=== PATIENT | female | born 1955 | race Caucasian/White ===

== ENCOUNTER 2020-12-13 08:54 | Outpatient (CLI) | payer MEDICARE, BC, SELFPAY ==
--- NOTE | 2021-01-08 15:12 | WPDHOMESLEEP ---
Sleep Study - Home Unattended Date of Study: 12/13/20 Ordering Provider: SURENDRA Sam Interpreting Provider: Oly Cárdenas MD Home Sleep Study Type: Apnea Link Air Height: 1.63 m Weight: 121.563 kg Body Mass Index: 46.0 Neck Circumference (inches): 16.5 [place]: 14 Reason for Sleep Study Ecessive daytime sleepiness, long sleep episodes of 10-12 hours and still feels tired Sleep History Ghazala Leiva is a 65-year-old female who is tired even after sleeping 10-12 hours. This is been going on for 1-2 years. There is a family history of sleep disorders with her mother, brother and sister all using CPAP for sleep apnea. She wakes up during the night to urinate and she always has excessive daytime sleepiness. She frequently snores and is occasionally loud enough that others complain about it. She rarely awakens at night with heartburn, belching or coughing. She does not awaken from sleep feeling short of breath. she rarely has trouble sleeping with a cold. She occasionally gasps for breath during the night. She rarely has breathing problems at night observed by others. She does not sweat excessively at night. She does not notice her heart pounding or beating irregularly at night. She frequently falls asleep during the day, occasionally involuntarily, never while driving or while exerting physical effort. She does not have loss of muscle tone was strong emotion. She does not have daytime difficulty due to excessive sleepiness. She rarely feels paralyzed on waking or falling asleep and rarely has vivid dreamlike scenes upon awakening or falling asleep. She is never a frail to go to sleep. She rarely has nightmares. She occasionally remembers her dreams. She rarely has racing thoughts. She occasionally feels sad and depressed. She rarely feels anxiety. She describes it as feeling that she needs to be somewhere and she is running late but she does not really have any where to go. She does not have muscular tension. She rarely notices parts of her body jerking. She does not kick at night. She rarely has crawling and aching feelings in her legs and rarely has any kind of leg pain at night. She does not have morning jaw pain. She does not grind her teeth during sleep. She occasionally has bothered by arthritic pain in her thumbs during the day. She is not awakened by pain during the night. She does not wake up feeling stiff in the morning. She rarely awakens with sore achy muscles or pain in her neck and spine. She takes Nexium regularly for GERD. Normal bedtime is whenever she gets tired so she does not really have a fixed bedtime. It takes a variable amount of time for her to fall asleep. She typically wakes twice at night to urinate and is able to return to sleep quickly. She may also take a drink of water. She wakes up early at 7:30 a.m. only on Wednesdays which is the day that she works. 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 Her weekend schedule is the same. She estimates getting 8-12 hours of sleep. She does take naps. A short nap is not refreshing. Even after a nap, she is initially refreshed but then become sleepy again. She feels better in the afternoon compared to other times of day. After drinking 2 cups of coffee in the morning she sometimes falls asleep again sitting upright on the couch. habits: quit tobacco November 1985. Caffeine 2 mugs per day. no alcohol or recreational drugs. [facility] Past Medical History Medical History (Updated 01/08/21 @ 15:27 by Oly Cárdenas MD) Asthma Depression GERD (gastroesophageal reflux disease) Glaucoma Hypercholesterolemia Hypertension Surgical History Surgical History (Updated 01/08/21 @ 15:17 by Oly Cárdenas MD) History of hysterectomy Family History Family History (Updated 01/08/21 @ 15:15 by Oly Cárdenas MD) Mother Obstructive sleep apnea Sibling Obstructive sleep apnea Sibling Obstructive sleep apnea Social Hi
[2021-01-08 15:30] VITALS: BMI 46.0
== END 2020-12-13 08:55 | disposition home or self-care (01) ==
LOC: ANHCSM 08:55
PROVIDERS: PCP Family Medicine; Visit Provider Physician Assistant
DX: G47.33 Obstructive sleep apnea (adult) (pediatric) (principal)
CPT/HCPCS: 95806

== ENCOUNTER 2021-01-06 17:01 | Outpatient (CLI) | payer MEDICARE, BC, SELFPAY ==
--- NOTE | ~2021-01-06 | MM_ITS ---
EXAMINATION: MM screening lee BI w isak HISTORY: Screening TECHNIQUE: Craniocaudal and mediolateral oblique 3-D tomosynthesis images were obtained and synthetic 2-D images were generated. CAD analysis was submitted and interpreted. COMPARISON: Comparison to multiple prior studies sequentially, with oldest reviewed study dated 07/19. BREAST PARENCHYMAL COMPOSITION: The breasts are almost entirely fatty. FINDINGS: There is no evidence of suspicious mass, calcification, or architectural distortion to sugg est malignancy in either breast. There has been no suspicious interval change. IMPRESSION: 1. No mammographic evidence of malignancy. 2. Recommend routine screening mammography in one year. BI-RADS Category 1: Negative Reviewed, dictated and finalized at location A. [facility]
== END 2021-01-06 17:02 | disposition home or self-care (01) ==
LOC: ANHIMG 17:09
PROVIDERS: PCP Family Medicine; Visit Provider Physician Assistant
DX: Z12.31 Encounter for screening mammogram for malignant neoplasm of breast (principal)
CPT/HCPCS: 77063; 77067

== ENCOUNTER → 2021-01-17 02:49 | Outpatient (CLI) | payer MEDICARE, BC, SELFPAY ==
[2021-01-17 18:21] LABS: SARS-CoV-2 RNA PCR Negative
== END ==
PROVIDERS: PCP Family Medicine; Visit Provider Internal Medicine Critical Care Medicine
DX: R68.89 Other general symptoms and signs (principal); Z20.822 Contact with and (suspected) exposure to COVID-19
CPT/HCPCS: C9803; U0003; U0005

== ENCOUNTER 2021-01-19 09:09 | Outpatient (CLI) | payer MEDICARE, BC, SELFPAY ==
--- NOTE | 2021-02-10 14:36 | WPDSLEEPSTUD ---
Sleep Study Ordering Provider: SURENDRA Sam Interpreting Physician: Oly Cárdenas MD Sleep Study Type: CPAP Titration Height: 1.63 m Weight: 120.202 kg Body Mass Index: 45.4 Neck Circumference (inches): 16 [place]: 9 Reason for Sleep Study HST Dec 13, 2020 with severe HOA, AHI 68, lowest saturation 78%, here for CPAP titration Sleep History Ghazala Leiva is a 66-year-old female with a home sleep test Dec 13 showing severe HOA AHI 68, desaturation to 78%, constant snoring. She is tired even after sleeping 10-12 hours. This is been going on for 1-2 years. There is a family history of sleep disorders with her mother, brother and sister all using CPAP for sleep apnea. She wakes up during the night to urinate and she always has excessive daytime sleepiness. She frequently snores and is occasionally loud enough that others complain about it. She rarely awakens at night with heartburn, belching or coughing. She does not awaken from sleep feeling short of breath. she rarely has trouble sleeping with a cold. She occasionally gasps for breath during the night. She rarely has breathing problems at night observed by others. She does not sweat excessively at night. She does not notice her heart pounding or beating irregularly at night. She frequently falls asleep during the day, occasionally involuntarily, never while driving or while exerting physical effort. She does not have loss of muscle tone was strong emotion. She does not have daytime difficulty due to excessive sleepiness. She rarely feels paralyzed on waking or falling asleep and rarely has vivid dreamlike scenes upon awakening or falling asleep. She is never a frail to go to sleep. She rarely has nightmares. She occasionally remembers her dreams. She rarely has racing thoughts. She occasionally feels sad and depressed. She rarely feels anxiety. She describes it as feeling that she needs to be somewhere and she is running late but she does not really have any where to go. She does not have muscular tension. She rarely notices parts of her body jerking. She does not kick at night. She rarely has crawling and aching feelings in her legs and rarely has any kind of leg pain at night. She does not have morning jaw pain. She does not grind her teeth during sleep. She occasionally has bothered by arthritic pain in her thumbs during the day. She is not awakened by pain during the night. She does not wake up feeling stiff in the morning. She rarely awakens with sore achy muscles or pain in her neck and spine. She takes Nexium regularly for GERD. Normal bedtime is whenever she gets tired so she does not really have a fixed bedtime. It takes a variable amount of time for her to fall asleep. She typically wakes twice at night to urinate and is able to return to sleep quickly. She may also take a drink of water. She wakes up early at 7:30 a.m. only on Wednesdays which is the day that she works. 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 Her weekend schedule is the same. She estimates getting 8-12 hours of sleep. She does take naps. A short nap is not refreshing. Even after a nap, she is initially refreshed but then become sleepy again. She feels better in the afternoon compared to other times of day. After drinking 2 cups of coffee in the morning she sometimes falls asleep again sitting upright on the couch. Habits: quit tobacco November 1985. Caffeine 2 mugs per day. No alcohol or recreational drugs. [facility] Past Medical History Medical History (Updated 02/10/21 @ 14:38 by Oly Cárdenas MD) Asthma Depression GERD (gastroesophageal reflux disease) Glaucoma Hypercholesterolemia Hypertension Obstructive sleep apnea Surgical History Surgical History History of hysterectomy Family History Family History Mother Obstructive sleep apnea Srini
[2021-02-10 14:56] VITALS: BMI 45.4
== END 2021-01-19 09:10 | disposition home or self-care (01) ==
LOC: ANHCSM 09:10
PROVIDERS: PCP Family Medicine; Visit Provider Physician Assistant
DX: G47.33 Obstructive sleep apnea (adult) (pediatric) (principal)
CPT/HCPCS: 95810; 95811

== ENCOUNTER 2021-01-27 11:14 | Outpatient (CLI) | payer MEDICARE, BC, SELFPAY | END 2021-01-27 11:15 | disposition home or self-care (01) | LOC: ANHCOVIDVC 11:14 | PROVIDERS: PCP Family Medicine | DX: Z23 Encounter for immunization (principal) | CPT/HCPCS: 0001A; 91300 ==

== ENCOUNTER 2021-02-17 11:15 | Outpatient (CLI) | payer MEDICARE, BC, SELFPAY | END 2021-02-17 11:16 | disposition home or self-care (01) | LOC: ANHCOVIDVC 11:15 | PROVIDERS: PCP Family Medicine | DX: Z23 Encounter for immunization (principal) | CPT/HCPCS: 0002A; 91300 ==

== ENCOUNTER 2021-06-30 14:01 | Outpatient (CLI) | payer MEDICARE, BC, SELFPAY ==
--- NOTE | ~2021-06-30 | DEXA_ITS ---
Bone Density Report Name: Ghazala Leiva Age: 66 Sex: Female Ethnicity: White Date of : 1955 Indication: postmenopausal; hysterectomy; Referring Provider: Marie Vyas Study: Bone densitometry was performed. Exam Date: June 30, 2021 Accession number: [id number] Bone Density: Region BMD T-score Z-score Classification AP Spine (L1-L4) 1.274 2.1 4.1 Normal Femoral Neck (Left) 0.867 0.2 1.9 Normal Total Hip (Left) 1.152 1.7 3.1 Normal Total Hip Bilateral Avg 1.152 1.7 3.1 Normal Femoral Neck (Right) 0.853 0.0 1.7 Normal Total Hip (Right) 1.150 1.7 3.1 Normal World Health Organization criteria for BMD impression classify patients as: Normal (T-score at or above -1.0), Osteopenia (T-score between -1.0 and -2.5), or Osteoporosis (T-score at or below -2.5). 10-year Fracture Risk: FRAX not reported because: All T-scores for Spine Total, Hip Total, Femoral Neck at or above -1.0 Clinical Information Provided by Patient: Has used the following medications: Vitamin D, Calcium Has the following medical conditions: Hysterectomy Patient maximum height was 64 Menopause Age: 36 No regular weight bearing exercise Drinks caffeinated beverages Onset of menses at age 10 Number of children 2 Impression: The patient has normal bone mass. Discussion: BONE DENSITY IS ABOVE THE MINIMUM DESIRABLE LEVEL AT ALL SKELETAL SITES TESTED. This patient?s bone mineral density is above the minimum desirable level (T-score -1.0 or better) at all sites measured. The patient should follow a healthful lifestyle (good nutrition with adequate calcium and vitamin D, and appropriate weight-bearing exercise). Follow-Up: Consider repeating this study in 5 years or sooner if there is some new clinical indication. Reported by: LISA on 06/30/2021 2:30:00 PM. Reviewed, dictated and finalized at location AIesha WEBSTER
== END 2021-06-30 14:02 | disposition home or self-care (01) ==
LOC: ANHIMG 14:08
PROVIDERS: PCP Family Medicine; Visit Provider Physician Assistant
DX: M81.0 Age-related osteoporosis without current pathological fracture (principal)
CPT/HCPCS: 77080

== ENCOUNTER 2021-12-16 00:18 | Day surgery (SDC) | payer MEDICARE, BC, SELFPAY ==
[2021-12-06 15:18] VITALS: BMI 49.6
[2021-12-16 09:24] VITALS: BP 168/90; PULSE 101; RESP 22; TEMP 36.3; O2SAT 98; BMI 49.6
[2021-12-16] MEDS: LACTATED RINGERS 1,000 ML 150 ML IV CONT (09:36)
--- NOTE | 2021-12-16 09:58 | WPDGICN ---
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 She presents today for follow-up examination because of recent rectal bleeding. Further recommendations will be given after endoscopy. (2) Rectal bleeding: Code(s): K62.5 - Hemorrhage of anus and rectum Status: Acute Assessment and Plan: Patient has had at least 2 episodes of rectal bleeding no associated pain. This is suspicious for hemorrhoidal bleeding. High-fiber diet is advised. This will be evaluated at time of endoscopy. GI Consult Note Consult date/time: 12/16/21 09:58 HPI: Ghazala Leiva is a 66 year old female Presents for follow-up colonoscopy. Patient recently notice bright red blood per rectum on at least 2 occasions. Patient reports that 5 years ago 2016 underwent colonoscopy a benign leiomyoma type polyp was removed from the colon at that time. She reports that her weight appetite bowel movements are otherwise normal aside from 2 recent episodes of bright red blood per rectum she denies abdominal pain. With the use of stools softeners her bowel habits have remained regular. Review of Systems Review of Systems: All systems reviewed & are unremarkable except as noted in HPI and below PMFSH Past Medical History Medical History (Updated 12/16/21 @ 10:00 by Savage Gauthier MD) Asthma Depression GERD (gastroesophageal reflux disease) Glaucoma Hypercholesterolemia Hypertension Obstructive sleep apnea Surgical History Surgical History History of hysterectomy Family History Family History Mother Obstructive sleep apnea Sibling Obstructive sleep apnea Sibling Obstructive sleep apnea Social History Social History Smoking status: Former smoker Tobacco type: cigarettes Alcohol intake: never Living arrangements: with family Meds Home Medications and Allergies Home Medications Medication Instructions Recorded Confirmed Type bupropion HCl 150 mg PO DAILY 12/06/21 12/06/21 History hydrochlorothiazide 25 mg PO DAILY 12/06/21 12/06/21 History metoprolol succinate 100 mg PO DAILY 12/06/21 12/06/21 History paroxetine HCl 20 mg PO DAILY 12/06/21 12/06/21 History Allergies Allergy/AdvReac Type Severity Reaction Status Date / Time SULFA AdvReac Intermediate NV Uncoded 12/16/21 09:22 Vital Signs Vital Signs - 24 hr 12/16/21 09:24 Temperature 97.3 F L Pulse Rate 101 H Respiratory Rate 22 H Blood Pressure 168/90 H Pulse Oximetry 98 Exam Narrative: Physical exam reveals patient to be alert. Vital signs stable. HEENT exam unremarkable. Patient is anicteric. Lungs are clear to auscultation and percussion. Heart is without murmur or extra sounds. Abdomen bowel sounds are present soft nontender with no organomegaly. She is modestly obese. Digital external rectal exam normal.
--- NOTE | 2021-12-16 10:02 | P.PNAN_ITS ---
Anes - Initial Pre Proc Eval Procedure: Operation Date: 12/16/21 10:00 Proposed Procedures p Screening Colonoscopy - Savage Gauthier MD Date/Time: 12/16/21 10:02 Surgeon: Savage Gauthier MD Pre Op Diagnosis: hx of colon polyps Patient Data Age: 66 Gender: F Height: 1.6 m Weight: 127 kg Last Vital Signs Temp 36.3 C L 12/16/21 09:24 Pulse 101 H 12/16/21 09:24 Resp 22 H 12/16/21 09:24 BP 168/90 H 12/16/21 09:24 Pulse Ox 98 12/16/21 09:24 Allergies Allergy/AdvReac Type Severity Reaction Status Date / Time SULFA AdvReac Intermediate NV Uncoded 12/16/21 09:22 Home Medications Medication Instructions Recorded Confirmed Type bupropion HCl 150 mg PO DAILY 12/06/21 12/06/21 History hydrochlorothiazide 25 mg PO DAILY 12/06/21 12/06/21 History metoprolol succinate 100 mg PO DAILY 12/06/21 12/06/21 History paroxetine HCl 20 mg PO DAILY 12/06/21 12/06/21 History Patient hx anesthesia problems: none Family hx anesthesia problems: none Results Review: All pre-operative results and documents have been reviewed as part of the pre-operative evaluation. [facility] Past Medical History Medical History Asthma Depression GERD (gastroesophageal reflux disease) Glaucoma Hypercholesterolemia Hypertension Obstructive sleep apnea Surgical History Surgical History History of hysterectomy Family History Family History Mother Obstructive sleep apnea Sibling Obstructive sleep apnea Sibling Obstructive sleep apnea Social History Social History Smoking status: Former smoker Tobacco type: cigarettes Alcohol intake: never Living arrangements: with family Anes - Eval Final PreProcedure Day of Procedure 12/16/21 10:02 Patient weight: morbidly obese Heart: regular rate and rhythm Lungs: clear to auscultation Airway: Mallampati scale class II Neurological: alert and oriented Last oral intake: >/= 8 hours ASA classification: III Emergent: no Anesthetic plan: proceed Anesthesia type and monitoring: general GIVS and standard monitoring Results Review: All pre-operative results and documents have been reviewed as part of the pre-operative evaluation. Informed Consent: The patient's anesthetic plan and its attendant risks and benefits were discussed with the patient/family/POA. Questions were solicited and answers provided to the satisfaction of the patient/family/POA.
[2021-12-16 10:28] VITALS: BP 124/72; PULSE 88; RESP 16; O2SAT 95
[2021-12-16 10:38] VITALS: BP 153/98; PULSE 88; RESP 23; O2SAT 93
[2021-12-16 10:48] VITALS: BP 155/97; PULSE 85; RESP 20; O2SAT 98
== END 2021-12-16 11:06 | disposition home or self-care (01) ==
PROVIDERS: PCP Physician Assistant; Visit Provider Internal Medicine Gastroenterology
PROC: 0DJD8ZZ Inspection of Lower Intestinal Tract, Via Natural or Artificial Opening Endoscopic (ICD-10-PCS; CPT 45378; principal; 2021-12-16 10:00)
DX: K62.5 Hemorrhage of anus and rectum (principal); K57.30 Diverticulosis of large intestine without perforation or abscess without bleeding; K64.8 Other hemorrhoids; K64.4 Residual hemorrhoidal skin tags; Z86.010 Personal history of colon polyps; I10 Essential (primary) hypertension; E78.00 Pure hypercholesterolemia, unspecified; G47.33 Obstructive sleep apnea (adult) (pediatric); J45.909 Unspecified asthma, uncomplicated; K21.9 Gastro-esophageal reflux disease without esophagitis; H40.9 Unspecified glaucoma; F32.9 Major depressive disorder, single episode, unspecified; Z87.891 Personal history of nicotine dependence; E66.01 Morbid (severe) obesity due to excess calories; Z68.42 Body mass index [BMI] 45.0-49.9, adult
CPT/HCPCS: 45378; J2704; J7120

== ENCOUNTER 2022-06-08 15:07 | Outpatient (CLI) | payer MEDICARE, BC, SELFPAY ==
--- NOTE | ~2022-06-08 | MM_ITS ---
EXAMINATION: MM screening lee BI w isak HISTORY: Screening TECHNIQUE: Craniocaudal and mediolateral oblique 3-D tomosynthesis images were obtained and synthetic 2-D images were generated. CAD analysis was submitted and interpreted. COMPARISON: Comparison to multiple prior studies sequentially, with oldest reviewed study dated 07/19. BREAST PARENCHYMAL COMPOSITION: The breasts are almost entirely fatty. FINDINGS: There is no evidence of suspicious mass, calcification, or architectural distortion to sugg est malignancy in either breast. There has been no suspicious interval change. IMPRESSION: 1. No mammographic evidence of malignancy. 2. Recommend routine screening mammography in one year. BI-RADS Category 1: Negative Reviewed, dictated and finalized at location A.
== END 2022-06-08 15:08 | disposition home or self-care (01) ==
PROVIDERS: PCP Physician Assistant; Visit Provider Physician Assistant
DX: Z12.31 Encounter for screening mammogram for malignant neoplasm of breast (principal)
CPT/HCPCS: 77063; 77067

== ENCOUNTER 2024-03-20 14:21 | Outpatient (CLI) | payer MEDICARE, BC, SELFPAY ==
--- NOTE | ~2024-03-20 | DEXA_ITS ---
Bone Density Report Name: JANE DILLARD Age: 69 Sex: Female Ethnicity: White Date of : 1955 Indication: postmenopausal; screening for osteoporosis; history of glucocorticoids; asthma or emphysema; hysterectomy; Referring Provider: BLANCA DRAKE Study: Bone densitometry was performed. Exam Date: March 20, 2024 Accession number: [id number] Bone Density: Region BMD T-score Z-score Classification AP Spine(L1-L4) 1.246 1.8 4.0 Normal Femoral Neck (Left) 0.812 -0.3 1.5 Normal Total Hip (Left) 1.161 1.8 3.4 Normal Femoral Neck (Right) 0.818 -0.3 1.6 Normal Total Hip (Right) 1.213 2.2 3.8 Normal Total Hip Mean 1.187 2.0 3.6 Normal World Health Organization criteria for BMD impression classify patients as: Normal (T-score at or above -1.0), Osteopenia (T-score between -1.0 and -2.5), or Osteoporosis (T-score at or below -2.5). 10-year Fracture Risk: FRAX not reported because: All T-scores for Spine Total, Hip Total, Femoral Neck at or above -1.0 Clinical Information Provided by Patient: Has taken Glucocorticoids Has used the following medications: Vitamin D Has the following medical conditions: Asthma or Emphysema, Hysterectomy Patient maximum height was 64 Menopause Age: 36 No regular weight bearing exercise Does not regularly consume dairy products Drinks caffeinated beverages Onset of menses at age 11 Number of children 2 Impression: The patient has normal bone mass. The patient has risk factors, including: history of glucocorticoid therapy. Discussion: BONE DENSITY IS ABOVE THE MINIMUM DESIRABLE LEVEL AT ALL SKELETAL SITES TESTED. This patient?s bone mineral density is above the minimum desirable level (T-score -1.0 or better) at all sites measured. The patient should follow a healthful lifestyle (good nutrition with adequate calcium and vitamin D, and appropriate weight-bearing exercise). Follow-Up: Consider repeating this study in 5 years or sooner if there is some new clinical indication. Reported by: FANNY on 03/20/2024 3:00:00 PM. Reviewed, dictated and finalized at location A. [facility] CENTERJanelle
--- NOTE | ~2024-03-20 | MM_ITS ---
EXAMINATION: MM screening lee BI w isak HISTORY: Screening mammogram TECHNIQUE: Craniocaudal and mediolateral oblique 3-D tomosynthesis images were obtained and synthetic 2-D images were generated. CAD analysis was submitted and interpreted. COMPARISON: 06/08/2022, 01/06/2021 bilateral screening mammogram examinations BREAST PARENCHYMAL COMPOSITION: The breasts are almost entirely fatty. FINDINGS: There is no evidence of suspicious mass, calcification, or architectural distortion to sugg est malignancy in either breast. There has been no suspicious interval change. IMPRESSION: 1. No mammographic evidence of malignancy. 2. Recommend routine screening mammography in one year. BI-RADS Category 1: Negative. Reviewed, dictated and finalized at location A.
== END 2024-03-20 14:22 | disposition home or self-care (01) ==
PROVIDERS: PCP Family Medicine; Visit Provider Physician Assistant
DX: Z12.31 Encounter for screening mammogram for malignant neoplasm of breast (principal); Z78.0 Asymptomatic menopausal state
CPT/HCPCS: 77063; 77067; 77080

== ENCOUNTER 2025-05-26 10:48 | Outpatient (CLI) | payer MEDICARE, BC, SELFPAY ==
[2025-05-26 11:55] LABS: Alanine Aminotransferase 24 U/L (6-35); Albumin Level 4.3 g/dL (3.5-5.1); Alkaline Phosphatase 83 U/L (38-126); Anion Gap 10 mmol/L (4-12); Aspartate Amino Transferase 26 U/L (14-36); Bilirubin,Total 0.5 mg/dL (0.2-1.3); Blood Urea Nitrogen 23 mg/dL (7-17); Calcium 9.0 mg/dL (8.4-10.2); Carbon Dioxide 27 mmol/L (22-30); Chloride 98 mmol/L (98-107); Cholesterol 143 mg/dL (0-200); Estimated Glomerular Filt Rate 58; Glucose 123 mg/dL (65-110); HDL Direct 41 mg/dL; Potassium 3.9 mmol/L (3.4-5.0); Sodium 135 mmol/L (137-145); Total Protein 7.5 g/dL (6.3-8.2); Triglycerides 139 mg/dL (<150)
[2025-05-26 12:19] LABS: Hemoglobin A1C 5.7 % (<5.7)
== END 2025-05-26 10:49 | disposition home or self-care (01) ==
PROVIDERS: PCP Family Medicine; Visit Provider Family Medicine
DX: E78.00 Pure hypercholesterolemia, unspecified (principal); I10 Essential (primary) hypertension; R73.03 Prediabetes
CPT/HCPCS: 36415; 80053; 80061; 83036

== ENCOUNTER 2025-08-27 01:21 | Day surgery (SDC) | payer MEDICARE, BC, OTHER, SELFPAY ==
[2025-08-26 10:00] VITALS: BMI 50.3
[2025-08-27] VITALS (13 sets, daily range): BP systolic 96–150; BP diastolic 51–87; PULSE 65–77; RESP 16–23; TEMP 35.6; O2SAT 94–98; BMI 53.0
[2025-08-27 12:04] LABS: Hematocrit 39.1 % (37.0-47.0); Hemoglobin 12.6 g/dL (12.0-15.0); Immature Granulocyte Percent A 0.3 % (0-0.5); Lymphocytes Absolute Auto 2.25 K/mm3 (0.9-3.2); Mean Corpuscular HGB Conc 32.2 g/dl (32-36); Mean Corpuscular Hemoglobin 30.9 pg (26-34); Mean Corpuscular Volume 95.8 fl (80-100); Nucleated Red Blood Cells Absolute Auto 0.000 K/mm3 (0.0-0.012); Nucleated Red Blood Cells Perc 0.0 % (0.0-0.2); Platelet Count Result 222 k/mm3 (150-375); Red Blood Count 4.08 M/mm3 (4.2-5.4); White Blood Count 8.6 K/mm3 (4.5-10.0)
--- NOTE | 2025-08-27 12:10 | WPDHPUPDATE1 ---
History and Physical Update Update Date/Time: 08/27/25 12:10 History and Physical has been reviewed, including an updated exam of the patient. There are NO changes in the patient's condition. Risks, benefits, and alternatives have been discussed and questions answered. Patient agrees to proceed with procedure.
--- NOTE | 2025-08-27 12:10 | WPDMODSED ---
Moderate Sedation Note-Pt Data Patient Data Allergies Allergy/AdvReac Type Severity Reaction Status Date / Time Sulfa (Sulfonamide AdvReac Intermediate Nausea and Verified 08/27/25 11:45 Antibiotics) Vomiting Home Medications ?Medication ?Instructions ?Recorded ?Confirmed ?Type cetirizine 10 mg tablet (All Day 10 mg PO DAILY PRN allergy 04/06/23 08/26/25 Rx Allergy (cetirizine)) symptoms #30 tabs diphenhydramine HCl 25 mg tablet 25 mg PO QHS PRN allergy symptoms 04/06/23 08/26/25 Rx (Benadryl Allergy) #30 tabs latanoprost 0.005 % eye drops 1 drp EACH EYE DAILY #2.5 mL 04/06/23 08/26/25 Rx naproxen sodium 220 mg capsule 220 mg PO BID PRN pain #60 caps 04/06/23 08/26/25 Rx (Aleve) psyllium husk 0.52 gram capsule 0.52 g PO DAILY #30 caps 04/06/23 08/26/25 Rx (Daily Fiber) timolol 0.5 % eye drops 1 drp EACH EYE DAILY #5 mL 04/06/23 08/26/25 Rx omega-3s 800 mg-dha 186.67 mg-epa 1 cap PO .three times daily #90 03/07/24 08/26/25 Rx 560 mg-fish-vit D3 8.33 mcg caps capsule (De3 Dry Eye [place] Benefits) diclofenac sodium 1 % topical gel 2 g topical QID 09/11/24 08/26/25 History (Voltaren Arthritis Pain) metoprolol succinate 50 mg See Rx Instructions .Route 07/06/25 08/27/25 Rx tablet,extended release 24 hr .COMPLEX #180 tabs bupropion HCl 150 mg 24 hr tablet, See Rx Instructions .Route 08/10/25 08/27/25 Rx extended release .COMPLEX #90 tabs hydrochlorothiazide 25 mg tablet See Rx Instructions .Route 08/10/25 08/26/25 Rx .COMPLEX #90 tabs paroxetine HCl 20 mg tablet See Rx Instructions .Route 08/12/25 08/27/25 Rx .COMPLEX #30 tabs acetaminophen 500 mg tablet 1,000 mg PO Q6H PRN pain 08/26/25 08/26/25 History docusate sodium 100 mg capsule 100 mg PO HS 08/26/25 08/26/25 History (Colace) vitamin B complex 1 tablet PO BID 08/26/25 08/26/25 History Current Medications: Active Medications Sodium Chloride (Normal Saline Iv) 500 mls @ 100 mls/hr IV CONT .Q5H [facility] Sedation/Anesthesia: No previous sedation/anesthesia problems (including family history). [facility] Past Medical History Medical History (Updated 03/16/25 @ 15:17 by Erick Huitron MD) Exertional chest pain Prediabetes Obstructive sleep apnea Asthma GERD (gastroesophageal reflux disease) Glaucoma Hypercholesterolemia (~04/06/23) Hypertension Depression Surgical History Surgical History History of hysterectomy 1991 Family History Family History Mother Obstructive sleep apnea Sibling Obstructive sleep apnea Sibling Obstructive sleep apnea Social History Social History Smoking status: Former smoker Tobacco type: cigarettes Additional smoking assessment comments: quit in the Alcohol intake: never Substance use: never Substance use type: does not use Lack of Transportation: No Lack of Food: Never True Current Housing: I Have Housing Concerned About Future Housing: No Difficulty Paying Gas/Electric Bills: No Difficulty Paying for Meds: No Currently Unemployed: No Education: High School Diploma/GED Difficulty w/ Childcare or Family Care: No Living arrangements: with family Occupation/Education: occupation Gender identity (if verbalized by the patient): Female Sexual Orientation (if Verbalized by the Patient): Straight or Heterosexual Spiritual care concerns: No Mod Sed Physical Exam Physical Exam Pre Procedural Exam: Normal: Lungs, Heart Rate and Heart Rhythm Hours since solid foods: 12 Hours since liquid intake: 12 Mallampati Classification: class III Internal Medicine - PN: Obj Da Vital Signs Vital Signs: Vital Signs - 24 hr 08/27/25 11:47 Temperature 35.6 C L Pulse Rate 69 Respiratory Rate 23 H Blood Pressure 148/80 H Pulse Oximetry 98 Oxygen Delivery Room Air Meds/Results Medications: Active Medications Generic Name Dose Route Start Last Admin Trade Name Freq PRN Reason Stop Dose Admin Sodium Chloride 500 mls @ 100 mls/hr 08/27/25 11:30 Normal Saline Iv IV CONT .Q5H [facility] Labs 08/27/25 11:56 08/27/25 11:56 Labs: Laboratory Results - last 24 hr 08/27/25 11:56 WBC 8.6 RBC 4.08 L Hgb 12.6 Hct 39.1 MCV 95.8 MCH 30.9 MCHC 32.2 RDW 13.7 Plt Count 222 MPV 9.8 Immature Gran % (Auto) 0.3 Neut % (Auto) 63.3 Lymph % (Auto) 26.1 [place] % (Auto) 7.5 Eos % (Auto) 2.0 Baso % (Auto) 0.8 Lymph # (Auto) 2.25 [place] # (Auto) 0.7 H Eos # (Auto) 0.2 Baso # (Auto) 0.1 Abs Immat Gran (auto) 0.03 Absolute Neuts (auto) 5.5 Absolute Nucleated RBC 0.000 Nucleated RBC % 0.0 ASA Classification/Sedation ASA Classification/Sedation ASA Class: III Emergent: No Risks: Risks, benefits and alternatives explained and patient/family accepted plan for sedation. Patient re-evaluated immediately prior to sedation.
[2025-08-27 12:18] LABS: Anion Gap 10 mmol/L (4-12); Blood Urea Nitrogen 24 mg/dL (7-17); Calcium 8.7 mg/dL (8.4-10.2); Carbon Dioxide 24 mmol/L (22-30); Chloride 101 mmol/L (98-107); Estimated CRCL calculation 74 ml/min; Estimated Glomerular Filt Rate > 60; Glucose 115 mg/dL (65-110); Potassium 4.6 mmol/L (3.4-5.0); Sodium 135 mmol/L (137-145)
--- NOTE | 2025-08-27 12:56 | WPDCARDPROC ---
Cardiac Cath Procedure Note Date of procedure:: 08/27/25 Performing physician:: CATHETERIZATION LABORATORY REPORT Procedure Date: 08/27/2025 Referring Physician: Dr. Garcia Anesthesia: Versed and Fentanyl were ordered and given in my presence at 1244, procedure ended at 1252. Supervision of nurse, Darby Cronin monitored moderate sedation with 2mg Versed and 50mcg Fentanyl was provided for 8 minutes. Pre-op Diagnosis: Abnormal stress test Post-op Diagnosis: Abnormal stress test Procedure(s): Left heart catheterization with coronary angiography Access Site: Right radial artery Brief History and Clinical Indications: 70-year-old woman with morbid obesity and hypertension who has been experiencing exertional shortness of breath and found to have an abnormal nuclear stress test for which cardiac catheterization with possible PCI was recommended. All risks, benefits and alternatives to left heart catheterization with or without percutaneous coronary intervention was discussed at length with the patient. Risk of complications including but not limited to bleeding, infection, arrhythmia, stroke, worsening kidney function, blood loss, groin hematoma, limb loss, emergency coronary artery bypass grafting, and even were discussed with the patient and all questions were answered. The patient understood and wished to proceed. Time out called, patient name, date of , medical record number, allergies, procedure performed, identify Behavioral Health Technician, patient and staff member concurred with accurate data, procedure carried on. Findings: LEFT HEART CATHETERIZATION FINDINGS: 1. Left main: The left main coronary artery is widely patent without any significant obstructive disease. 2. Left anterior descending: The LAD and the diagonal branches have mild luminal irregularities without any significant obstructive angiographic disease. 3. Left circumflex: The left circumflex artery and the main marginal branches have luminal irregularities without any significant obstructive angiographic disease. 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 4. Right coronary artery: The RCA is a large dominant vessel with luminal irregularities. 5. Left ventricle: A. End-diastolic pressure 28 mmHg. B. LV gram deferred. C. No significant gradient across aortic valve on catheter pullback. 6. Opening AO pressure 109/66 and closing AO pressure 91/68 Description of Procedure: Informed consent signed and placed in the chart. Patient transferred to slabbing machine operator room. Prepped and draped in usual sterile fashion. 2% lidocaine injected subcutaneously in right wrist area. 22-gauge venipuncture catheter used to access the right radial artery with the Seldinger technique. 6-FR slender sheath placed in right radial artery. Nitroglycerin 200mcg, Verapamil 2.5mg, and Heparin 5000U was given intraarterial through the sheath. J wire advanced under fluoroscopy. A 5F diagnostic TIG was used to crossed the aortic valve for LVEDP measurement and pull back gradient assessment. The 5F diagnostic TIG catheter was then used to engage the Right Coronary Artery and Left Main Coronary Artery. Multiple orthogonal angiogram obtained and reviewed. Hemostasis was achieved by application of TR band. Assessment: Mild myocardial bridging. Post Operative Condition: Stable No significant blood loss Disposition: Home Plan: The above findings were discussed with the referring physician. Continue aggressive medical therapy and risk factor modification. Derek Cha Interventional Cardiology
[2025-08-27] MEDS: SODIUM CHLORIDE 0.9% IV 450 ML 150 ML IV CONT (13:33)
== END 2025-08-27 16:24 | disposition home or self-care (01) ==
PROVIDERS: PCP Family Medicine; Visit Provider Internal Medicine
PROC: 4A023N7 Measurement of Cardiac Sampling and Pressure, Left Heart, Percutaneous Approach (ICD-10-PCS; CPT 93452; principal; 2025-08-27 13:00)
DX: R94.39 Abnormal result of other cardiovascular function study (principal); I10 Essential (primary) hypertension; R73.03 Prediabetes; G47.33 Obstructive sleep apnea (adult) (pediatric); J45.909 Unspecified asthma, uncomplicated; K21.9 Gastro-esophageal reflux disease without esophagitis; E78.00 Pure hypercholesterolemia, unspecified; F32.A Depression, unspecified; E66.01 Morbid (severe) obesity due to excess calories; Z68.43 Body mass index [BMI] 50.0-59.9, adult; Z79.1 Long term (current) use of non-steroidal anti-inflammatories (NSAID); Z98.890 Other specified postprocedural states; Z87.891 Personal history of nicotine dependence
CPT/HCPCS: 36415; 80048; 85025; 93458; C1769; C1887; C1894; J1644; J2003; J2250; J2305; J3010; J7040